=== PATIENT | female | born 1950 | race African-American/Black ===

== ENCOUNTER 2025-02-11 14:45 | Inpatient (IN) | payer MEDICARE, BC ==
[~2025-02-11] VITALS: Ht 162.6 cm; Wt 54.9 kg
[2025-02-11 14:45] VITALS: BP 135/78
[2025-02-11] MEDS ORDERED: HEPA500034 SQ (15:40)
[2025-02-11] MEDS ORDERED: NITR0.4T48 SL (15:40)
[2025-02-11] MEDS ORDERED: LOSA100T31 PO (15:40)
[2025-02-11] MEDS ORDERED: MULT-213 PO (15:40)
[2025-02-11] MEDS ORDERED: METF-440 PO (15:40)
[2025-02-11] MEDS ORDERED: ATOR10TA PO (15:40)
[2025-02-11] MEDS ORDERED: FLAX1CAP3 PO (15:40)
[2025-02-11] MEDS ORDERED: UBID200C32 PO (15:40)
[2025-02-11] MEDS ORDERED: FERR-56 PO (15:40)
[2025-02-11] MEDS ORDERED: ASCO500C18 PO (15:40)
[2025-02-11] MEDS ORDERED: VITA-287 PO (15:40)
[2025-02-11] MEDS ORDERED: LEVO88TA5 PO (15:40)
[2025-02-11] MEDS ORDERED: FURO20TA4 PO (15:40)
[2025-02-11] MEDS ORDERED: CARV3.122 PO (15:40)
[2025-02-11] MEDS ORDERED: OXYB5TAB16 PO (15:40)
[2025-02-11] MEDS ORDERED: CHOL2000 PO (15:40)
[2025-02-11] MEDS ORDERED: AMLO2.5T4 PO (15:40)
[2025-02-11] MEDS ORDERED: NORT10CA PO (15:40)
[2025-02-11] MEDS ORDERED: ACET-2605 PO (15:40)
[2025-02-11] MEDS ORDERED: QUET200T PO (15:40)
[2025-02-11] MEDS ORDERED: POLY17PO4 PO (15:40)
[2025-02-11] MEDS ORDERED: ASPI81TA31 PO (15:40)
[2025-02-11] MEDS ORDERED: [UNRECOGNIZED DRUG - OTHER] PO (15:40)
[2025-02-11] MEDS ORDERED: CICL34.62 TP (15:40)
[2025-02-11] MEDS ORDERED: OMEG1CAP76 PO (15:40)
[2025-02-11] MEDS ORDERED: CLONIDINE HCL 0.1 MG TABLET ONE (18:36)
[2025-02-11] MEDS: CLONIDINE HCL 0.1 MG TABLET PO ONE (18:42)
[2025-02-11] MEDS ORDERED: ZOLPIDEM 5 MG TABLET PO PRN (21:15)
[2025-02-11] MEDS ORDERED: MAG HYDROX/AL HYDROX/SIMETH 30 ML LIQUID UDC PO PRN (21:15)
[2025-02-11] MEDS ORDERED: MAGNESIUM HYDROXIDE 30 ML LIQUID UDC PO PRN (21:15)
[2025-02-11] MEDS ORDERED: ACETAMINOPHEN 325 MG TABLET PO PRN (21:15)
[2025-02-11] MEDS ORDERED: LORAZEPAM 1 MG TABLET PO PRN (21:15)
[2025-02-11] MEDS: BLOOD SUGAR DIAGNOSTIC 1 EACH STRIP VI ONE (21:15)
[2025-02-11] MEDS ORDERED: DEXTROSE 50% 50 ML DISP.SYRIN IV PRN (22:00)
[2025-02-11] MEDS ORDERED: NITROGLYCERIN 0.4 MG/TAB BOTTLE SL SCH (22:00)
[2025-02-11] MEDS ORDERED: FUROSEMIDE 20 MG TABLET PO SCH (22:00)
[2025-02-11] MEDS ORDERED: INSULIN REGULAR, HUMAN 1000 UNIT/10 ML VIAL SQ PRN (22:00)
[2025-02-12] MEDS: AMLODIPINE 2.5 MG TABLET PO SCH (06:00)
[2025-02-12] MEDS ORDERED: NITROGLYCERIN 0.4 MG/TAB BOTTLE SL PRN (06:11)
[2025-02-12] MEDS ORDERED: FUROSEMIDE 20 MG TABLET PO SCH (06:15)
[2025-02-12] MEDS: BLOOD SUGAR DIAGNOSTIC 1 EACH STRIP VI SCH (06:36)
[2025-02-12] MEDS: LEVOTHYROXINE SODIUM 88 MCG TABLET PO SCH (06:36)
[2025-02-12 08:01] VITALS: BP 130/82; TEMP 98.2; O2SAT 99
[2025-02-12] MEDS ORDERED: HYDR-894 PO (08:55)
[2025-02-12] MEDS ORDERED: GABA300C PO (08:55)
[2025-02-12] MEDS ORDERED: LIDO700A30 TP (08:55)
[2025-02-12] MEDS: CARVEDILOL 3.125 MG TABLET PO SCH (09:00)
[2025-02-12] MEDS: METFORMIN HCL 500 MG TABLET PO SCH (09:00)
[2025-02-12] MEDS: HEPARIN SODIUM,PORCINE 5,000 UNITS/ML VIAL SQ SCH (09:00)
[2025-02-12] MEDS: MULTIVIT, IRON, MIN NO. 8, FA TABLET PO SCH (09:55)
[2025-02-12] MEDS: CHOLECALCIFEROL 1,000 UNIT TABLET PO SCH (09:56)
[2025-02-12] MEDS: OXYBUTYNIN CHLORIDE 5 MG TABLET PO SCH (09:56)
[2025-02-12] MEDS: ASPIRIN 81 MG TAB.CHEW PO SCH (09:57)
[2025-02-12] MEDS: LOSARTAN POTASSIUM 50 MG TABLET PO SCH (09:58)
[2025-02-12] MEDS: VITAMIN B COMPLEX 1 TABLET PO SCH (09:58)
[2025-02-12] MEDS: ASCORBIC ACID 500 MG TABLET PO SCH (09:59)
[2025-02-12] MEDS: DIVALPROEX SPRINKLE 125 MG CAP.SPRINK PO SCH (11:00)
[2025-02-12 15:37] VITALS: BP 162/88; TEMP 98; O2SAT 96
[2025-02-12] MEDS: GABAPENTIN 300 MG CAPSULE PO SCH (17:00)
[2025-02-12 20:00] VITALS: BP 130/62; TEMP 98.2; O2SAT 98
[2025-02-12] MEDS: MIRALAX 17 GM POWD.PACK PO SCH (21:00)
[2025-02-12] MEDS: QUETIAPINE FUMARATE 25 MG TABLET PO SCH (21:00)
[2025-02-12] MEDS: ATORVASTATIN 10 MG TABLET PO SCH (21:10)
[2025-02-12] MEDS: FERROUS SULFATE 325 MG TABEC PO SCH (21:10)
[2025-02-13 07:58] VITALS: BP 147/91; TEMP 98; O2SAT 96
[2025-02-13] MEDS: FUROSEMIDE 20 MG TABLET PO SCH (09:00)
[2025-02-13] MEDS: LIDOCAINE 5% PATCH TD SCH (09:00)
[2025-02-13] MEDS: LITHIUM CARBONATE 150 MG CAPSULE PO SCH (09:41)
[2025-02-13 15:18] VITALS: BP 146/95; TEMP 98; O2SAT 96
[2025-02-13 20:21] VITALS: BP 164/77; TEMP 98.1; O2SAT 96
[2025-02-13] MEDS: OLANZAPINE ZYDIS 5 MG TAB.RAPDIS PO SCH (21:00)
[2025-02-14 08:40] VITALS: BP 128/69; TEMP 98; O2SAT 96
[2025-02-14 16:32] VITALS: BP 145/75; TEMP 98; O2SAT 96
[2025-02-14 20:13] VITALS: BP 169/69; TEMP 98; O2SAT 99
[2025-02-15 08:57] VITALS: BP 142/96; TEMP 98; O2SAT 96
[2025-02-15] MEDS: AMLODIPINE 2.5 MG TABLET PO SCH (09:00)
[2025-02-15 16:14] VITALS: BP 144/81; TEMP 98; O2SAT 96
[2025-02-15 19:52] VITALS: BP 145/82; TEMP 97.7; O2SAT 96
[2025-02-16 08:12] VITALS: BP 140/61; TEMP 98; O2SAT 96
[2025-02-16 16:38] VITALS: BP 136/79; TEMP 98; O2SAT 96
[2025-02-16 19:45] VITALS: BP 132/68; TEMP 98.1; O2SAT 96
[2025-02-17 07:54] VITALS: BP 139/93; TEMP 97.3; O2SAT 99
[2025-02-17 17:08] VITALS: BP 167/93; TEMP 97.6; O2SAT 100
[2025-02-17 19:46] VITALS: BP 140/86; TEMP 98; O2SAT 98
[2025-02-18 08:21] VITALS: BP 113/80; TEMP 98; O2SAT 100
[2025-02-18 15:14] VITALS: BP 124/69; TEMP 98; O2SAT 98
[2025-02-18 20:00] VITALS: BP 130/66; TEMP 98.1; O2SAT 98
[2025-02-19 07:53] VITALS: BP 159/72; TEMP 98; O2SAT 98
[2025-02-19 15:16] VITALS: BP 134/70; TEMP 98; O2SAT 98
[2025-02-19] MEDS: ACETAMINOPHEN 500 MG TABLET PO PRN (18:16)
[2025-02-19 20:00] VITALS: BP 140/95; TEMP 98; O2SAT 100
[2025-02-20] MEDS: ZOLPIDEM 5 MG TABLET PO PRN (01:45)
[2025-02-20 07:44] VITALS: BP 182/94; TEMP 98; O2SAT 96
[2025-02-20 20:00] VITALS: BP_SYST 125; BP_SYST 172; BP_DIAS 60; BP_DIAS 98; TEMP 97; O2SAT 99
[2025-02-21 08:50] VITALS: BP 175/95; TEMP 98; O2SAT 96
[2025-02-21 16:22] VITALS: BP 144/87; TEMP 98; O2SAT 96
[2025-02-21 19:45] VITALS: BP 148/82; TEMP 98.1; O2SAT 98
[2025-02-22 08:51] VITALS: BP 149/71; TEMP 98; O2SAT 96
[2025-02-22] MEDS: LORAZEPAM 2 MG/1 ML VIAL IM ONE (18:49)
[2025-02-23] MEDS: OLANZAPINE 10 MG VIAL IM ONE (09:10)
[2025-02-23] MEDS: LITHIUM CARBONATE 150 MG CAPSULE PO SCH (09:21)
[2025-02-23 16:23] VITALS: BP 160/88; TEMP 98.1; O2SAT 98
[2025-02-23 19:51] VITALS: BP 155/78; TEMP 98.1; O2SAT 98
[2025-02-23] MEDS: LORAZEPAM 1 MG TABLET PO PRN (23:13)
[2025-02-24 09:36] VITALS: BP 105/69; TEMP 98; O2SAT 100
[2025-02-24 16:41] VITALS: BP 169/98; TEMP 97.9; O2SAT 100
[2025-02-24 20:00] VITALS: BP 157/90; TEMP 97.6; O2SAT 100
[2025-02-25 07:56] VITALS: BP 133/75; TEMP 98; O2SAT 100
[2025-02-25 15:10] VITALS: BP 155/90; TEMP 98; O2SAT 99
[2025-02-25 20:00] VITALS: BP 143/93; TEMP 98.2; O2SAT 97
[2025-02-26 09:25] VITALS: BP 126/62; TEMP 98.2; O2SAT 98
[2025-02-26] MEDS: OLANZAPINE 10 MG VIAL IM ONE (16:08)
[2025-02-26 16:21] VITALS: BP 126/62
[2025-02-26] MEDS: LORAZEPAM 2 MG/1 ML VIAL IM ONE (17:12)
== END 2025-02-26 20:01 | DRG 885 ==
LOC: ER 14:45 → GPS 19:19
PROVIDERS: ADMIT Psychiatry & Neurology Psychiatry; ATTEND Nurse Practitioner Family
DX: F31.64 Bipolar disorder, current episode mixed, severe, with psychotic features (principal); N18.9 Chronic kidney disease, unspecified; F03.93 Unspecified dementia, unspecified severity, with mood disturbance; E11.22 Type 2 diabetes mellitus with diabetic chronic kidney disease; N32.81 Overactive bladder; E03.9 Hypothyroidism, unspecified; E78.5 Hyperlipidemia, unspecified; Z79.890 Hormone replacement therapy; Z79.899 Other long term (current) drug therapy; I13.10 Hypertensive heart and chronic kidney disease without heart failure, with stage 1 through stage 4 chronic kidney disease, or unspecified chronic kidney disease; E86.0 Dehydration; D64.9 Anemia, unspecified; Z79.84 Long term (current) use of oral hypoglycemic drugs; Z91.148 Patient's other noncompliance with medication regimen for other reason
CPT/HCPCS: 36415; 70030-TC; 71045; 84443; A4606; A4663; A9150; J1644; J1815; J2060; J2358